=== PATIENT | male | born 1990 | race Caucasian/White ===

== ENCOUNTER 2016-09-23 16:24 | Emergency (ER) | payer OTHER ==
[2016-09-23] MEDS ORDERED: PROPARACAINE 0.5% OPHTH DROPS 15 ML BTL LEFT EYE STA (17:38)
[2016-09-23] MEDS ORDERED: TOBRAMYCIN 0.3% OPHTH DROPS 5 ML BTL LEFT EYE STA (17:58)
--- NOTE | 2016-09-23 18:06 | ED ---
General Adult HPI - General Chief complaint: Eye Problems Stated complaint: sent by [facility] left eye irritation Time Seen by Provider: 09/23/16 17:30 Source: patient, RN notes reviewed Mode of arrival: ambulatory Limitations: no limitations - History of Present Illness Initial comments: Patient 25-year-old male who presents emergency room today with chief complaint of infection to the left eye. Patient does admit that he hasn't missed functioning tear duct on the left is had chronic eye infections. He states that 2 days ago he was helping his grandfather with some work in the basement. States he was standing and the dust came back into his face. He believes this is what caused this infection. States he has had some increased irritation drainage coming from the left eye. States he had some increased pain this morning at this time is relatively comfortable. Patient does admit that he has the infection going down around the left eye and his noticed a few spots on the opposite side of his nose and down at the tip underneath. He states they are sore and tender when he blew his nose earlier. Patient admits to some discomfort in the eye itself. He denies any visual changes. He denies any other complaints or symptoms. Patient denies any recent fever, chills, shortness of breath, chest pain, back pain, abdominal pain, nausea or vomiting, numbness or tingling, dysuria or hematuria, constipation or diarrhea, headaches or visual changes, or any other complaints. - Related Data Previous Rx's Medication Instructions Recorded Mupirocin 2% Oint [Bactroban Oint] 1 applic TOPICAL TID #1 gm 09/23/16 Tobramycin 0.3% Ophth Soln [Tobrex 1 - 2 drop LEFT EYE QID 7 Days 09/23/16 0.3% Ophth Soln] Allergies Allergy/AdvReac Type Severity Reaction Status Date / Time No Known Allergies Allergy Verified 09/23/16 16:46 Review of Systems ROS Statement: Those systems with pertinent positive or pertinent negative responses have been documented in the HPI. ROS Other: All systems not noted in ROS Statement are negative. Past Medical History Past Medical History: Asthma Additional Past Medical History / Comment(s): stomach ulcer. Asthma as a child. left tear duct clogging History of Any Multi-Drug Resistant Organisms: None Reported Past Surgical History: No Surgical Hx Reported Additional Past Surgical History / Comment(s): Oral sugeries and colonoscopy. Past Anesthesia/Blood Transfusion Reactions: No Reported Reaction Past Psychological History: ADD/ADHD Smoking Status: Current every day smoker Past Alcohol Use History: None Reported Past Drug Use History: None Reported - Past Family History Mother Family Medical History: Cancer Father Family Medical History: Cancer, CVA/TIA General Exam - General Exam Comments Initial Comments: General: The patient is awake and alert, in no distress, and does not appear acutely ill. Eye: Pupils are equal, round and reactive to light, extra-ocular movements are intact. No nystagmus. Increased redness to the left conjunctiva with watery discharge. No signs of icterus. Ears, nose, mouth and throat: There are moist mucous membranes and no oral lesions. Neck: The neck is supple, there is no tenderness or JVD. Cardiovascular: There is a regular rate and rhythm. No murmur, rub or gallop is appreciated. Respiratory: Lungs are clear to auscultation, respirations are non-labored, breath sounds are equal. No wheezes, stridor, rales, or rhonchi. Musculoskeletal: Normal ROM, no tenderness. Strength 5/5. Sensation intact. Pulses equal bilaterally 2+. Neurological: A&O x 3. CN II-XII intact, There are no obvious motor or sensory deficits. Coordination appears grossly intact. Speech is normal. Skin: Infection underneath the left eye. Increased swelling with mild redness. Lesions have crusted over top green discolored. Small areas seem to the right cheek area and down beneath his nose. Another small area middle forehead. Psychiatric: Cooperative, appropriate mood & affect, normal judgment. Limitations: no limitations Course Vital Signs 09/23/16 16:43 Temperature 97.8 F Pulse Rate 58 L Respiratory 17 Rate Blood Pressure 133/79 O2 Sat by Pulse 97 Oximetry Disposition Clinical Impression: Blepharitis of left eye Disposition: HOME SELF-CARE Condition: Good Instructions: Blepharitis (ED) Additional Instructions: Please use antibiotics as prescribed follow-up with the family doctor and human services program specialist over the next 2 days. Please return to emergency room if any symptoms increase or worsen or for any other concerns. Prescriptions: Mupirocin 2% Oint [Bactroban Oint] 1 applic TOPICAL TID #1 gm Tobramycin 0.3% Ophth Soln [Tobrex 0.3% Ophth Soln] 1 - 2 drop LEFT EYE QID 7 Days Referrals: None,Stated [Primary Care Provider] - 1-2 days Shantanu Holland MD [STAFF PHYSICIAN] - 1-2 days Time of Disposition: 18:06
[2016-09-23] MEDS ORDERED: MUPIROCIN 2% OINT 22 GM TUBE TOPICAL STA (18:18)
[2016-09-23 18:27] VITALS: BP 146/66; PULSE 65; RESP 18; TEMP 97.3
[2016-09-23] MEDS ORDERED: MUPIROCIN 2% OINT 22 GM TUBE TOPICAL SCH (22:00)
== END 2016-09-23 18:36 | disposition home or self-care (01) ==
LOC: EC 16:24
DX: H01.006 Unspecified blepharitis left eye, unspecified eyelid (principal); F17.200 Nicotine dependence, unspecified, uncomplicated
CPT/HCPCS: 87070; 87205; 99283